=== PATIENT | male | born 1960 | race Caucasian/White ===

== ENCOUNTER 2018-07-05 10:34 | Emergency (ER) | payer MEDICAID ==
[~2018-07-05] VITALS: Ht 180.3 cm; Wt 72.6 kg
[~2018-07-05 10:34] MED LIST: ALPRAZOLAM ER1 MG PO; BACTRIM DS TAB1 EACH PO; CLONIDINE HCL0.2 M2 PO; KEFLEX500 MG PO; NAPROSYN500 MG PO; NORCO 5-325 TA1 EACH PO; OXYCODONE HCL15 MG PO; OXYCONTIN CR 1010 M1 PO; PERCOCET 5-3251 EACH PO; PREDNISONE 20 M20 M1 PO
[2018-07-05] MEDS ORDERED: IBUPROFEN 200200 M1 PO (10:48)
[2018-07-05] MEDS ORDERED: ZYLOPRIM300 MG PO (10:48)
[2018-07-05] MEDS ORDERED: DOXYCYCLINE 10100 MG PO (11:01)
[2018-07-05 11:14] VITALS: BP 129/79
== END 2018-07-05 11:14 | disposition home or self-care (01) ==
LOC: M.ERS 10:34
DX: L03.116 Cellulitis of left lower limb (principal); M19.90 Unspecified osteoarthritis, unspecified site; M10.9 Gout, unspecified; Z88.5 Allergy status to narcotic agent; Z90.49 Acquired absence of other specified parts of digestive tract